=== PATIENT | male | born 1995 | race African-American/Black ===

== ENCOUNTER 2020-11-12 11:06 | Emergency (ER) | payer MEDICAID, SELFPAY ==
[2020-11-12 11:25] VITALS: BP 131/88; PULSE 71; RESP 19; TEMP 37; O2SAT 98; BMI 28.3
--- NOTE | 2020-11-12 11:38 | HMH.EDUTC ---
[facility] [place] Clinical Impression: Close exposure to COVID-19 virus Disposition: Home, Self-Care Condition on Discharge: Good Instructions: DI for COVID-19 (Suspected or Confirmed ), Preventing the Spread of Coronavirus Discharge Instructions Additional Instructions: Drink plenty of fluids. Take tylenol for pain or fever. Return if you begin to have difficulty breathing. Follow up with your regular doctor. GO TO THE ER FOR ANY WORSENING SYMPTOMS Referrals: PCP,No [Primary Care Provider] - Time of Disposition: 11:40 Medical Decision Making - Medical Records Medical records reviewed: No: I reviewed the patient's medical records. - Steve Inquiry Pt receiving controlled substance: No Vital Signs: 11/12/20 11:25 11/12/20 11:40 Temperature 98.6 F 98.6 F Temperature Source Oral Pulse Rate 71 Pulse Rate [Right Brachial] 71 Respiratory Rate 19 19 Blood Pressure 131/88 Blood Pressure [Right Arm] 131/88 Blood Pressure Mean [Right Arm] 102 Blood Pressure Source [Right Arm] Automatic Cuff Blood Pressure Position [Right Arm] Sitting 02 Sat by Pulse Oximetry 98 Oxygen Delivery Method Room Air Orders (Tests/Meds): ORDERS Category Date Time Status Covid-19 Nasal PCR ([facility]) Routine Lab 11/12/20 11:26 Re[place] [facility] [place] - General Stated complaint: covid test Time Seen by Provider: 11/12/20 11:38 - History of Present Illness Provider Complaint: He states that he has been exposed to covid. His girlfriend currently has covid. He denies any symptoms in himself so far. - Related Data Allergies Allergy/AdvReac Type Severity Reaction Status Date / Time No Known Allergies Allergy Verified 11/12/20 11:40 [facility] History - Hepatitis A Screen Attestation statement:: This patient has been screened for Hepatitis A risk factors. I have reviewed the patient's past medical history: Yes ROS Obtained: Yes All systems reviewed & no additional complaints - Constitutional Constitutional: Reports system reviewed and no additional complaints, except as docu - Eyes Eyes: Reports system reviewed and no additional complaints, except as docu - ENT Ears, Nose, Mouth, and Throat: Reports system reviewed and no additional complaints, except as docu - Cardiovascular Cardiovascular: Reports system reviewed and no additional complaints, except as docu - Respiratory Respiratory: Reports system reviewed and no additional complaints, except as docu - Gastrointestinal Gastrointestingal: Reports: system reviewed and no additional complaints, except as docu Physical Exam - General General appearance: alert, in no apparent distress - Head Head exam: atraumatic, normocephalic, normal inspection - Eye Eye exam: Present: normal appearance, PERRL, EOMI - ENT ENT exam: Present: normal exam, normal oropharynx, mucous membranes moist, TM's normal bilaterally, normal external ear exam - Neck Neck exam: Present: normal inspection, full ROM, trachea midline. Absent: meningismus, lymphadenopathy - Chest Chest inspection: Present: normal inspection, symmetric chest wall rise. Absent: tenderness - Respiratory Respiratory exam: Present: normal lung sounds bilaterally. Absent: respiratory distress - Cardiovascular Cardiovascular exam: Present: regular rate, normal rhythm. Absent: JVD - Abdominal Exam Abdominal exam: Present: soft, normal bowel sounds. Absent: distention, tenderness, guarding - Extremities Exam Extremities exam: Present: normal inspection, full ROM, normal capillary refill. Absent: calf tenderness - Back Exam Back exam: Present: normal inspection. Absent: tenderness - Neurological Exam Neurological exam: Present: alert, oriented X3 - Psychiatric Psychiatric exam: Present: normal affect, normal mood - Skin Skin exam: Present: warm, dry, intact, normal color - Lymphatic Lymphatic Findings: no adenopathy
[2020-11-12 11:40] VITALS: BP 131/88; PULSE 71; RESP 19; TEMP 37; O2SAT 98
--- NOTE | 2020-11-12 15:38 | PC.NURSE ---
ATTEMPTED TO CALL PT ABOUT POSITIVE COVID RESULT, NO ANSWER AND VOICEMAIL WAS FULL. WILL TRY AGAIN LATER
--- NOTE | 2020-11-12 19:46 | PC.NURSE ---
ATTEMPTED TO CALL PT AGAIN AND NO ANSWER
--- NOTE | 2020-11-12 19:52 | PC.NURSE ---
PT NOTIFIED OF POSITIVE COVID RESULT
== END 2020-11-12 11:43 | disposition home or self-care (01) ==
PROVIDERS: Emergency Provider Nurse Practitioner Family
DX: U07.1 COVID-19 (principal)
CPT/HCPCS: 99202; G0463; U0003

== ENCOUNTER 2021-02-15 10:32 | Emergency (ER) | payer MEDICAID, SELFPAY ==
[2021-02-15 10:33] VITALS: BP 159/74; PULSE 94; RESP 18; TEMP 37.6; O2SAT 96; BMI 27.1
--- NOTE | 2021-02-15 10:40 | HMH.EDGENADL ---
ED Disposition Clinical Impression: Viral syndrome Disposition: Home, Self-Care Condition on Discharge: Good Instructions: Sore Throat Referrals: PCP,No [Primary Care Provider] - 3 days Time of Disposition: 11:25 - Critical Care Critical Care Time: No Attestation: On , the high probability of a clinically significant, sudden or life threatening deterioration of the following system(s) required my full and direct attention, intervention and personal management. The time I documented below is in addition to time spent performing reported procedures but includes the following listed in this critical care notation. Medical Decision Making - Medical Records Medical records reviewed: Yes: I reviewed the patient's medical records. - Steve Inquiry Pt receiving controlled substance: No Vital Signs: 02/15/21 10:33 02/15/21 10:41 02/15/21 11:00 Temperature 99.6 F Temperature Source Oral Pulse Rate 91 H 93 H Pulse Rate [Left Radial] 94 H Respiratory Rate 18 Blood Pressure 138/63 Blood Pressure [Right Arm] 159/74 H Blood Pressure Mean 80 Blood Pressure Mean [Right Arm] 102 Blood Pressure Source [Right Arm] Automatic Cuff Blood Pressure Position [Right Arm] Sitting 02 Sat by Pulse Oximetry 96 97 95 Oxygen Delivery Method Room Air 02/15/21 11:30 Temperature Temperature Source Pulse Rate 85 Pulse Rate [Left Radial] Respiratory Rate Blood Pressure 131/73 Blood Pressure [Right Arm] Blood Pressure Mean 86 Blood Pressure Mean [Right Arm] Blood Pressure Source [Right Arm] Blood Pressure Position [Right Arm] 02 Sat by Pulse Oximetry 95 Oxygen Delivery Method - Lab Data Lab Results 02/15/21 10:45: Group A Strep Rapid Negative Orders (Tests/Meds): ORDERS Category Date Time Status Flu A&B Antigens, Rapid [Rapid Influenza A&B Antigens] Lab 02/15/21 10:45 Received Stat Full Resp Panel w/COVID ([facility]) Routine Lab 02/15/21 10:45 Received Strep Screen Confirmation Stat Micro 02/15/21 10:45 Received Medical Decision Narrative: 26yo M evaluated for fever and headache, sore throat. Patient is in no acute distress initial evaluation. His physical exam is unremarkable. Patient has been swabbed for strep, flu, Covid. We will hold the patient here until his strep swab has resulted. He has no allergies. If positive will treat with Bicillin. If negative will discharge home and call with results of flu and Covid once they have resulted. Plan discussed with patient he is in agreement. General Adult HPI - General Stated complaint: fever,sore throat Time Seen by Provider: 02/15/21 10:40 - History of Present Illness HPI narrative: 26yo M that denies significant past medical history reports the emergency department secondary to fever, sore throat. Symptoms been ongoing for 2 days. Patient reports taking Tylenol prior to arrival. States his T-max at home was 102. Denies cough, nausea/vomiting/diarrhea. Denies known sick contact. Patient smokes black in [place] daily. - Related Data Allergies Allergy/AdvReac Type Severity Reaction Status Date / Time No Known Allergies Allergy Verified 11/12/20 11:40 [facility] History - Hepatitis A Screen Drug use history?: No Attestation statement:: This patient has been screened for Hepatitis A risk factors. I have reviewed the patient's past medical history: Yes - Social History Tobacco Type: cigarettes Alcohol Intake: never Occupational Status: other ROS Obtained: Yes All systems reviewed & no additional complaints Physical Exam - General General appearance: alert, in no apparent distress - Head Head exam: atraumatic, normocephalic, normal inspection - Eye Eye exam: Present: normal appearance, PERRL, EOMI - ENT ENT exam: Present: normal exam, normal oropharynx, mucous membranes moist, TM's normal bilaterally, normal external ear exam - Neck Neck exam: Present: normal inspection, full ROM, trachea m
[2021-02-15 10:41] VITALS: PULSE 91; O2SAT 97
[2021-02-15 11:00] VITALS: BP 138/63; PULSE 93; O2SAT 95
[2021-02-15 11:19] LABS: Adenovirus,PCR Not Detected (NotDetected); Bordetella Pertussis Not Detected (NotDetected); Chlamydophila Pneumoniae, PCR Not Detected (NotDetected); Coronavirus 19, PCR Not Detected (NotDetected); Coronavirus 229E Not Detected (NotDetected); Coronavirus NL63 Not Detected (NotDetected); Coronavirus OC43 Not Detected (NotDetected); Coronovirus HKU1,PCR Not Detected (NotDetected); Human Metapneumovirus Not Detected (NotDetected); Influenza A, PCR Not Detected (NotDetected); Influenza AH1, 2009 Not Detected (NotDetected); Influenza AH1, PCR Not Detected (NotDetected); Influenza AH3,PCR Not Detected (NotDetected); Influenza B, PCR Not Detected (NotDetected); Mycoplasma Pneumoniae, PCR Not Detected (NotDetected); Parainfluenza 1, PCR Not Detected (NotDetected); Parainfluenza 2, PCR Not Detected (NotDetected); Parainfluenza 3, PCR Not Detected (NotDetected); Parainfluenza 4, PCR Not Detected (NotDetected); Respiratory Syncytial Virus Not Detected (NotDetected); Rhinovirus/Enterovirus Not Detected (NotDetected)
[2021-02-15 11:30] VITALS: BP 131/73; PULSE 85; O2SAT 95
[2021-02-15 11:34] LABS: Strep Scrn Group A (Rapid) Negative (Negative)
[2021-02-15 11:51] VITALS: BP 131/73; PULSE 85; RESP 18; TEMP 37.6; O2SAT 96
== END 2021-02-15 11:53 | disposition home or self-care (01) ==
PROVIDERS: Emergency Provider Family Medicine
DX: Z20.822 Contact with and (suspected) exposure to COVID-19 (principal); B34.9 Viral infection, unspecified
CPT/HCPCS: 87275; 87276; 87430; 87581; 87633; 87798; 99282